=== PATIENT | male | born 1990 | race African-American/Black ===

== ENCOUNTER 2024-04-22 18:56 | Emergency (ER) | payer SELFPAY ==
[2024-04-22] MEDS ORDERED: Codeine/Promethazine 10-6.25 MG/5 ML Syrup 5 ML UD Syringe PO STA (19:51)
[2024-04-22] MEDS: Acetaminophen/Codeine 120-12 MG/5 ML Soln 5 ML UD Cup PO ONE (19:52)
[2024-04-22 20:22] LABS: CORONAVIRUS COVID-19 NAA POSITIVE (NEGATIVE); INFLUENZA A NAA NEGATIVE (NEGATIVE); INFLUENZA B NAA NEGATIVE (NEGATIVE)
== END 2024-04-22 20:44 | disposition home or self-care (01) ==
LOC: MW.ED 18:56
DX: U07.1 COVID-19 (principal); Z75.8 Other problems related to medical facilities and other health care
CPT/HCPCS: 0240U; 99283